=== PATIENT | male | born 1960 | race Caucasian/White ===

== ENCOUNTER 2017-04-09 14:09 | Emergency (ER) | payer OTHER ==
[~2017-04-09] VITALS: Ht 175.3 cm; Wt 72.6 kg
[~2017-04-09 14:09] MED LIST: ALEVE220 MG PO; ALLOPURINOL 30300 M2 PO; ANTABUSE250 M1 PO; ATIVAN0.5 MG PO; ATIVAN1 M1 PO; ATIVAN1 MG PO; BACTRIM DS TAB1 EACH PO; CELEXA 10 MG TA10 M1 PO; CELEXA 20 MG TA20 MG PO; CELEXA10 MG; CLONIDINE0.1 PO; COLCRYS0.6 MG PO; DESYREL150 MG PO; DESYREL50 MG PO; DOXYCYCLINE 10100 MG PO; HYDROCHLOROTH12.5 MG PO; HYDROCODON-ACE1 EAC8 PO; K-DUR10 MEQ PO; KEPPRA 500 MG500 M1 PO; LEVOTHYROXIN0.025 MG; LIBRIUM10 MG PO; MAG-OX 400 TAB400 M1 PO; MAG6464 MG PO; MICROZIDE12.5 MG; MOBIC15 MG; MULTI-VITAMIN1 EAC5 PO; NEURONTIN 300300 M1 PO; NOHOMEMEDICATIONS; NORCO 5-325 TA1 EACH PO; PRILOSEC 20 MG20 MG PO; PROTONIX40 MG PO; SEROQUEL 100 M100 MG PO; SEROQUEL 50 MG50 M2 PO; SEROQUEL200 MG PO; SLOW-MAG64 MG PO; THIAMINE HCL100 MG PO; TOPROL XL25 MG PO; TRAZODONE 150150 M1; TRAZODONE 150150 M1 PO; TRINATE TABLET1 TAB PO
[2017-04-09] MEDS ORDERED: PHENERGAN 25 MG25 M1 PO (15:13)
[2017-04-09] MEDS ORDERED: ZOFRAN ODT4 MG PO (15:13)
== END 2017-04-09 15:45 | disposition home or self-care (01) ==
LOC: ER 14:09
DX: S06.0X0A Concussion without loss of consciousness, initial encounter (principal); I10 Essential (primary) hypertension; F32.9 Major depressive disorder, single episode, unspecified; F10.99 Alcohol use, unspecified with unspecified alcohol-induced disorder; Y00.XXXA Assault by blunt object, initial encounter; Y93.89 Activity, other specified; Y92.89 Other specified places as the place of occurrence of the external cause; Y99.8 Other external cause status

== ENCOUNTER 2017-04-09 18:03 | Emergency (ER) | payer OTHER ==
[~2017-04-09] VITALS: Ht 175.3 cm; Wt 66.7 kg
[~2017-04-09 18:03] MED LIST changes: +PHENERGAN 25 MG25 M1 PO; +ZOFRAN ODT4 MG PO
[2017-04-09 18:51] LABS: ABSOLUTE NEUTROPHILS 3.9 thou/uL (1.4-8.2); BASOPHILS 0.4 % (0.0-2.0); EOSINOPHILS 4.8 % (0.0-3.0); HEMATOCRIT 32.5 % (42.0-52.0); HEMOGLOBIN 10.5 gm/dL (14.0-18.0); LYMPHOCYTES 35.6 % (24.0-44.0); MCH 25.9 pg (26.0-34.0); MCHC 32.2 g/dL (28.0-37.0); MCV 80.6 fL (80.0-100.0); MONOCYTES 6.3 % (1.0-8.0); PLATELET COUNT 332 thou/uL (150-400); POLYS 52.9 % (36.0-66.0); RBC 4.04 mil/uL (4.50-6.00); RDW 21.3 % (10.5-14.5); WBC 7.5 thou/uL (4.0-11.0)
[2017-04-09 18:52] LABS: MANUAL DIFF NO
[2017-04-09 18:59] LABS: CALCIUM 8.7 mg/dL (8.5-10.1); CREATININE 0.8 mg/dL (0.7-1.3)
== END 2017-04-09 20:13 | disposition home or self-care (01) ==
LOC: ER 18:03
PROVIDERS: Physician Assistant
DX: R53.1 Weakness (principal); E87.1 Hypo-osmolality and hyponatremia; E86.0 Dehydration; I10 Essential (primary) hypertension; F32.9 Major depressive disorder, single episode, unspecified; F41.9 Anxiety disorder, unspecified; F10.99 Alcohol use, unspecified with unspecified alcohol-induced disorder

== ENCOUNTER 2017-05-20 14:21 | Emergency (ER) | payer OTHER ==
[~2017-05-20] VITALS: Ht 175.3 cm; Wt 68.0 kg
[2017-05-20] MEDS ORDERED: LEVOTHYROXIN0.125 M1 PO (15:18)
[2017-05-20] MEDS ORDERED: ZOLOFT50 MG PO (15:19)
[2017-05-20] MEDS ORDERED: NORVASC5 MG PO (15:19)
[2017-05-20] MEDS ORDERED: PROTONIX40 M1 PO (15:19)
[2017-05-20] MEDS ORDERED: GABAPENTIN 100100 MG PO (15:19)
[2017-05-20] MEDS ORDERED: ATIVAN1 M1 PO (15:20)
== END 2017-05-20 15:20 | disposition home or self-care (01) ==
LOC: ER 14:21
DX: F10.10 Alcohol abuse, uncomplicated (principal); I10 Essential (primary) hypertension; F32.9 Major depressive disorder, single episode, unspecified; F41.9 Anxiety disorder, unspecified

== ENCOUNTER 2017-06-05 12:56 | Inpatient (IN) | payer OTHER ==
[~2017-06-05] VITALS: Ht 175.3 cm; Wt 65.3 kg
--- NOTE | ~2017-06-05 | EKG ---
[address] [address] ELECTROCARDIOGRAM REPORT Name: LEONORNICK Maria C Room #: 458-P [facility] IN M.R.#: [id number] Admission: 06/05/17 Attend Phys: David Hoffman DO Discharge: 06/07/17 Date of : 58 Report #: [id number] THIS REPORT FOR: //name// [facility] ED Test Date: 2017-06-05 Test Time: 13:11:17 Pat Name: NICK GALVEZ Department: Room: [facility] Gender: M Store Mgr: KF : 1960 Requested By: Darwin Correa Order Number: [id number] MD: Lele Song Measurements Intervals [place] Rate: 118 P: 78 MS: 127 QRS: -17 QRSD: 86 T: 73 QT: 347 QTc: 487 Interpretive Statements Sinus tachycardia Borderline left axis deviation Compared to ECG 06/28/2013 01:29:51 No significant changes Electronically Signed On 06-08-2017 22:02:17 CDT by Lele Song [email or web address] <ELECTRONICALLY SIGNED> By: Lele Song MD 06/08/17 2202 10 Lele Song MD /EPI
[~2017-06-05 12:56] MED LIST changes: +GABAPENTIN 100100 MG PO; +LEVOTHYROXIN0.125 M1 PO; +NORVASC5 MG PO; +PROTONIX40 M1 PO; +ZOLOFT50 MG PO
[2017-06-05 12:58] VITALS: BP 134/109; BP 82/46
[2017-06-05 14:03] LABS: ABSOLUTE NEUTROPHILS 9.5 thou/uL (1.4-8.2); BASOPHILS 0.8 % (0.0-2.0); EOSINOPHILS 0.9 % (0.0-3.0); HEMATOCRIT 36.5 % (42.0-52.0); HEMOGLOBIN 11.7 gm/dL (14.0-18.0); MCH 25.4 pg (26.0-34.0); MCHC 32.1 g/dL (28.0-37.0); MCV 79.3 fL (80.0-100.0); MONOCYTES 3.6 % (1.0-8.0); PLATELET COUNT 353 thou/uL (150-400); POLYS 76.7 % (36.0-66.0); RDW 20.1 % (10.5-14.5); WBC 12.4 thou/uL (4.0-11.0)
[2017-06-05 14:05] LABS: MANUAL DIFF NO
[2017-06-05 14:16] LABS: CALCIUM 9.3 mg/dL (8.5-10.1); CREATININE 1.3 mg/dL (0.7-1.3); POTASSIUM 3.9 mmol/L (3.5-5.1)
[2017-06-05 15:41] VITALS: BP 113/69
[2017-06-05 15:57] LABS: URINE BILIRUBIN NEGATIVE (Negative); URINE BLOOD NEGATIVE (Negative); URINE COLOR YELLOW; URINE GLUCOSE-RANDOM* NEGATIVE (Negative); URINE KETONES 1+ (Negative); URINE LEUKOCYTES-REFLEX NEGATIVE (Negative); URINE PROTEIN (DIPSTICK) NEGATIVE (Negative); URINE SPECIFIC GRAVITY 1.025 (1.003-1.035); URINE UROBILINOGEN 0.2 E.U./dl (0.2-1.0)
[2017-06-05 16:05] VITALS: BP 115/76
[2017-06-05 16:08] LABS: AMP/METHAMP Negative (Negative); BARBITURATES Negative (Negative); BENZODIAZEPINES Negative (Negative); COCAINE Negative (Negative); METHADONE Negative (Negative); OPIATES Negative (Negative); PCP Negative (Negative); THC Negative (Negative)
[2017-06-05 16:30] VITALS: BP 113/77
[2017-06-05 19:41] LABS: TSH 1.054 uIU/mL (0.358-3.740)
[2017-06-05 20:16] VITALS: BP 120/74
[2017-06-06 00:25] VITALS: BP 116/77
[2017-06-06 04:28] VITALS: BP 116/79
[2017-06-06 07:23] VITALS: BP 137/93
[2017-06-06 11:17] VITALS: BP 139/100
[2017-06-06 15:50] VITALS: BP 130/85
[2017-06-06 19:53] VITALS: BP 123/78
[2017-06-07 04:18] LABS: ALBUMIN 2.8 g/dL (3.4-5.0); ALKALINE PHOSPHATASE 44 U/L (46-116); DIRECT BILIRUBIN < 0.1 mg/dL (<0.1-0.3); SGOT 21 U/L (15-37); SGPT 16 U/L (30-65); TOTAL BILIRUBIN 0.3 mg/dL (<0.1-1.0); TOTAL PROTEIN 6.5 g/dL (6.4-8.2)
[2017-06-07 05:38] VITALS: BP 139/69
[2017-06-07 07:13] VITALS: BP 156/104
[2017-06-07] MEDS ORDERED: HYDROXYZINE PAM50 MG PO (09:29)
[2017-06-07] MEDS ORDERED: TRAZODONE HCL50 MG PO (09:30)
[2017-06-07 09:58] VITALS: BP 156/104
[2017-06-07 10:21] VITALS: BP 156/104
== END 2017-06-07 11:02 | disposition home or self-care (01) | DRG 897 ==
LOC: ER 12:56 → EROBS 14:47 → 4W 17:21
PROVIDERS: Emergency Medicine; Nurse Practitioner; Psychiatry & Neurology Psychiatry
DX: F10.229 Alcohol dependence with intoxication, unspecified (principal); F41.9 Anxiety disorder, unspecified; I10 Essential (primary) hypertension; I95.9 Hypotension, unspecified; Y90.0 Blood alcohol level of less than 20 mg/100 ml; F32.9 Major depressive disorder, single episode, unspecified; Z81.1 Family history of alcohol abuse and dependence; Z80.9 Family history of malignant neoplasm, unspecified; Z87.81 Personal history of (healed) traumatic fracture
CPT/HCPCS: 10045

== ENCOUNTER 2017-06-10 21:12 | Emergency (ER) | payer OTHER ==
[~2017-06-10] VITALS: Ht 175.3 cm; Wt 65.3 kg
[~2017-06-10 21:12] MED LIST changes: +HYDROXYZINE PAM50 MG PO; +TRAZODONE HCL50 MG PO
[2017-06-10 22:45] LABS: LYMPHOCYTES 38.8 % (24.0-44.0); MANUAL DIFF NO; MCHC 32.3 % (28.0-37.0); MCV 77.4 fL (80.0-100.0); MONOCYTES 7.6 % (1.0-8.0); PLATELET COUNT 347 thou/uL (150-400); POLYS 49.6 % (36.0-66.0); RBC 4.39 mil/uL (4.50-6.00); RDW 20.4 % (10.5-14.5); WBC 8.9 thou/uL (4.0-11.0)
[2017-06-10 22:45] LABS: CHLORIDE 104 mmol/L (98-107); POTASSIUM 3.9 mmol/L (3.5-5.1); SODIUM 145 mmol/L (136-145)
[2017-06-10 22:46] LABS: ANION GAP 16 mmol/L (7-16); BUN 12 mg/dL (7-18); CALCIUM 9.1 mg/dL (8.5-10.1); CO2 25 mmol/L (21-32); CREATININE 0.8 mg/dL (0.7-1.3); GLUCOSE 74 mg/dL (74-106)
[2017-06-10 22:46] LABS: ABSOLUTE NEUTROPHILS 4.4 thou/uL (1.4-8.2); BASOPHILS 0.4 % (0.0-2.0); EOSINOPHILS 3.6 % (0.0-3.0)
[2017-06-10 22:53] LABS: ACETAMINOPHEN < 2 ug/mL (10-30); ALBUMIN 3.8 g/dL (3.4-5.0); ALKALINE PHOSPHATASE 53 U/L (46-116); SGOT 53 U/L (15-37); SGPT 25 U/L (30-65); TOTAL BILIRUBIN 0.4 mg/dL (<0.1-1.0); TOTAL PROTEIN 7.8 g/dL (6.4-8.2)
== END 2017-06-11 00:08 | disposition other institution, planned readmission (95) ==
LOC: ER 21:12
PROVIDERS: Physician Assistant
DX: F10.10 Alcohol abuse, uncomplicated (principal); I10 Essential (primary) hypertension; F32.9 Major depressive disorder, single episode, unspecified; F41.9 Anxiety disorder, unspecified; K76.0 Fatty (change of) liver, not elsewhere classified; F17.210 Nicotine dependence, cigarettes, uncomplicated

== ENCOUNTER 2017-10-01 22:31 | Emergency (ER) | payer OTHER ==
[~2017-10-01] VITALS: Ht 175.3 cm; Wt 66.7 kg
[2017-10-01] MEDS ORDERED: NEURONTIN 300M300 M2 PO (22:51)
[2017-10-01] MEDS ORDERED: NORVASC10 MG PO (22:52)
[2017-10-01] MEDS ORDERED: ATIVAN1 MG PO (23:33)
== END 2017-10-01 23:55 ==
LOC: ER 22:31
DX: F10.10 Alcohol abuse, uncomplicated (principal); I10 Essential (primary) hypertension; F32.9 Major depressive disorder, single episode, unspecified; F41.9 Anxiety disorder, unspecified; M19.90 Unspecified osteoarthritis, unspecified site

== ENCOUNTER 2017-10-27 14:56 | Emergency (ER) | payer OTHER ==
[~2017-10-27] VITALS: Ht 175.3 cm; Wt 69.4 kg
[~2017-10-27 14:56] MED LIST changes: +NEURONTIN 300M300 M2 PO; +NORVASC10 MG PO
[2017-10-27 16:14] LABS: ABSOLUTE NEUTROPHILS 5.5 thou/uL (1.4-8.2); BASOPHILS 2.2 % (0.0-2.0); HEMATOCRIT 34.1 % (42.0-52.0); HEMOGLOBIN 11.2 gm/dL (14.0-18.0); LYMPHOCYTES 21.1 % (24.0-44.0); MCH 24.8 pg (26.0-34.0); MCHC 32.9 g/dL (28.0-37.0); MCV 75.5 fL (80.0-100.0); MONOCYTES 8.3 % (1.0-8.0); PLATELET COUNT 385 thou/uL (150-400); POLYS 66.4 % (36.0-66.0); RBC 4.52 mil/uL (4.50-6.00); WBC 8.3 thou/uL (4.0-11.0)
[2017-10-27 16:25] LABS: CALCIUM 8.6 mg/dL (8.5-10.1); CREATININE 0.7 mg/dL (0.7-1.3); POTASSIUM 3.7 mmol/L (3.5-5.1)
[2017-10-27 16:31] LABS: ALBUMIN 3.5 g/dL (3.4-5.0); TOTAL BILIRUBIN 0.2 mg/dL (<0.1-1.0); TOTAL PROTEIN 7.4 g/dL (6.4-8.2)
[2017-10-27] MEDS ORDERED: ATIVAN1 MG PO (18:40)
[2017-10-27] MEDS ORDERED: PHENERGAN 25 MG25 M1 PO (18:40)
[2017-10-27 19:08] VITALS: BP 120/74
== END 2017-10-27 19:10 ==
LOC: ER 14:56
PROVIDERS: Physician Assistant
DX: F10.129 Alcohol abuse with intoxication, unspecified (principal); T69.8XXA Other specified effects of reduced temperature, initial encounter; I10 Essential (primary) hypertension; F32.9 Major depressive disorder, single episode, unspecified; F41.9 Anxiety disorder, unspecified; M71.9 Bursopathy, unspecified; I73.00 Raynaud's syndrome without gangrene; Z87.891 Personal history of nicotine dependence; X31.XXXA Exposure to excessive natural cold, initial encounter; Y93.89 Activity, other specified; Y92.89 Other specified places as the place of occurrence of the external cause; Y99.8 Other external cause status; Y90.8 Blood alcohol level of 240 mg/100 ml or more

== ENCOUNTER → 2017-10-30 | Emergency (ER) | payer OTHER ==
[~2017-10-30] MED LIST changes: +AMBIEN 5 MG TABL5 M1 PO; +PANTOPRAZOLE SO40 M1 PO; +QUETIAPINE FUM100 MG PO; +SEROQUEL 100 M100 M1 PO
== END ==
LOC: ER 05:31
DX: Z53.21 Procedure and treatment not carried out due to patient leaving prior to being seen by health care provider (principal)

== ENCOUNTER 2017-12-01 22:06 | Emergency (ER) | payer OTHER ==
[~2017-12-01] VITALS: Ht 175.3 cm; Wt 69.4 kg
[~2017-12-01 22:06] MED LIST changes: -AMBIEN 5 MG TABL5 M1 PO; -PANTOPRAZOLE SO40 M1 PO; -QUETIAPINE FUM100 MG PO; -SEROQUEL 100 M100 M1 PO
[2017-12-01 23:53] LABS: ABSOLUTE NEUTROPHILS 8.1 thou/uL (1.4-8.2); BASOPHILS 1.3 % (0.0-2.0); EOSINOPHILS 0.1 % (0.0-3.0); HEMATOCRIT 39.6 % (42.0-52.0); HEMOGLOBIN 12.6 gm/dL (14.0-18.0); LYMPHOCYTES 15.5 % (24.0-44.0); MCHC 31.8 g/dL (28.0-37.0); MCV 78.6 fL (80.0-100.0); MONOCYTES 4.6 % (1.0-8.0); PLATELET COUNT 361 thou/uL (150-400); POLYS 78.5 % (36.0-66.0); RBC 5.03 mil/uL (4.50-6.00); RDW 19.1 % (10.5-14.5); WBC 10.3 thou/uL (4.0-11.0)
[2017-12-02] LABS: ANION GAP 26 mmol/L (7-16); BUN 18 mg/dL (7-18); CALCIUM 8.5 mg/dL (8.5-10.1); CHLORIDE 100 mmol/L (98-107); CO2 14 mmol/L (21-32); CREATININE 0.9 mg/dL (0.7-1.3); GLUCOSE 71 mg/dL (74-106); POTASSIUM 4.5 mmol/L (3.5-5.1); SODIUM 140 mmol/L (136-145)
[2017-12-02 00:05] LABS: ALBUMIN 3.6 g/dL (3.4-5.0); DIRECT BILIRUBIN < 0.1 mg/dL (<0.1-0.3); LIPASE 205 U/L (73-393); SGOT 36 U/L (15-37); SGPT 27 U/L (30-65); TOTAL BILIRUBIN 0.4 mg/dL (<0.1-1.0); TOTAL PROTEIN 7.4 g/dL (6.4-8.2)
[2017-12-02 01:35] VITALS: BP 123/82
== END 2017-12-02 01:36 | disposition home or self-care (01) ==
LOC: ER 22:06
PROVIDERS: Emergency Medicine
DX: F10.129 Alcohol abuse with intoxication, unspecified (principal); I10 Essential (primary) hypertension; F32.9 Major depressive disorder, single episode, unspecified; F41.9 Anxiety disorder, unspecified; Z87.891 Personal history of nicotine dependence

== ENCOUNTER 2017-12-08 22:41 | Inpatient (IN) | payer OTHER ==
[~2017-12-08] VITALS: Ht 175.3 cm; Wt 58.5 kg
--- NOTE | ~2017-12-08 | HC ---
[facility] [place] [address] CONSULTATION Name: NICK GALVEZ Room #: 364-P ADM IN M.R.#: [id number] Admission: 12/09/17 Attend Phys: Chinmay Garcia MD Discharge: Date of : 58 Report #: [id number] THIS REPORT FOR: //name// CC: Chinmay HAAS unknown DATE OF SERVICE: 12/10/2017 CHIEF COMPLAINT: Surgical wound to the chest wall. HISTORY OF PRESENT ILLNESS: This is a 57-year-old male patient who presents to the hospital for ongoing care of a wound to his chest wall and a previously dehisced surgical flap to the right ischial region. He had a rib fracture in his right chest wall and apparently developed ulceration that was nonhealing and he has had extensive debridement in the operating room today. He had a previous flap in September by at [facility]. I have been asked to see him with regard to wound care today. Additionally, he is noted to have hematuria and is being evaluated for this. He has been at [facility] recently. He has had a wound VAC on the area of the flap dehiscence. PAST MEDICAL HISTORY: Positive for history of spinal cord injury with paraplegia. He has a suprapubic catheter. He has had a history of renal and bladder stones. FAMILY HISTORY: Noncontributory. SOCIAL HISTORY: Negative for alcohol or tobacco use. ALLERGIES: SULFA, TRIMETHOPRIM, CIPRO. MEDICATIONS: Include Benadryl, Phenergan, meropenem, dantrolene, iron, Lovenox, ibuprofen, hydrocodone, Celexa, calcium, protein supplement, MiraLax, Protonix, nystatin powder, zinc, oxybutynin, folic acid. REVIEW OF SYSTEMS: CONSTITUTIONAL: Denies fever, chills or weight loss. NEUROLOGICAL: The patient is paraplegic. ENT: The patient denies earache, nasal drainage, sore throat. CARDIOVASCULAR: The patient denies chest pain or palpitations, diaphoresis. PULMONARY: The patient denies cough or shortness of breath. GASTROINTESTINAL: The patient denies nausea, vomiting, diarrhea or abdominal pain. ORTHOPEDIC: The patient is aware of the flap dehiscence as well as the chest wall wound. Other systems in a 14-point review of systems are negative. PHYSICAL EXAMINATION: [address] [address] CONSULTATION Name: NICK GALVEZ Room #: 364-P [facility] IN ..#: [id number] Admission: 12/09/17 Attend Phys: Chinmay Garcia MD Discharge: Date of : 58 Report #: [id number] VITAL SIGNS: At this time include pulse rate of 85, respiration of 18, blood pressure 109/59, temperature 97.7. GENERAL: This is a chronically ill-appearing male patient who appears to be in minimal distress. HEENT: Head is normocephalic. Nose and throat clear. NECK: Supple. LUNGS: Clear. ABDOMEN: Soft, distended. Suprapubic catheter in place. CHEST WALL: Demonstrates a surgical wound to the right chest wall that is healthy, clean and granulating. No significant tunneling or undermining is noted. No evidence of infection. EXTREMITIES: The right ischial region demonstrates a surgical flap to the ischial region. There is a proximal portion, which is dehisced; however, is clean and granulating. LABORATORY DATA: Includes serum sodium 139, potassium 4.1, chloride 104, CO2 28, BUN 43, creatinine 1.1, glucose 119. White blood cell count is 8.2; the hemoglobin 12.0; hematocrit of 37.4; platelet count is 272,000. CLINICAL IMPRESSION: 1. Surgical wound to the chest wall following debridement of chronic pressure ulceration. 2. Dehisced right ischial flap following flap closure of a stage IV pressure ulceration. 3. Paraplegia secondary to spinal cord injury. RECOMMENDATIONS: At this point in time, we will use moist gauze dressings for today. He will be returning likely to the [facility] tomorrow, where I think a wound VAC to both locations would be appropriate. If for some reason he states here long, we will initiate wound VAC while here in the hospital. All questions have been answered. I appreciate being asked to see him in consultation. <ELECTRONICALLY SIGNED> By: Chago Ríos MD 12/11/17 [id number] Chago Ríos MD /nt
--- NOTE | ~2017-12-08 | S ---
[facility] [place] [address] [place] [address] SURGICAL PATH RPT PROCEDURE Name: NICK GALVEZ Room #: 364-P ADM IN M.R.#: [id number] Admission: 12/09/17 Date of : 58 Discharge: Report #: [id number] Path Case #: [id number] PATHOLOGY REPORT COLLECTION DATE: 12/09/2017 RECEIVED DATE: 12/09/2017 SUBMITTING PHYS: Dr. Atif Chan OTHER PHYS: SPECIMEN(S) RECEIVED: A.Antrum rule out H pylori * * * * * * * * * * * * FINAL DIAGNOSIS: Gastric mucosa, antrum rule out H. pylori, endoscopic biopsy: - Mild reactive gastropathy. - Negative for intestinal metaplasia or atrophy. - Negative for Helicobacter pylori. COMMENT: A well-controlled Helicobacter pylori immunohistochemical stain performed on block A1-Negative. (IUV:pit; 12/10/2017) PATHOLOGIST: Cara Mosher M.D. REPORT ELECTRONICALLY SIGNED BY: Cara Mosher M.D. DATE/TIME: 12/10/2017 16:35 * * * * * * * * * * * * GROSS PATHOLOGY: Received in formalin labeled "Nick Galvez, antrum, rule out H. pylori," are 2 segments of stokes soft tissue measuring 0.7 x 0.3 x 0.2 cm in aggregate dimensions and ranging from 0.3 to 0.4 cm in maximum dimension. The specimen is submitted entirely in cassette A1. (TSD; 12/09/2017) CLINICAL HISTORY: Pre-OP DX: Coffee-ground emesis Post-OP DX: Duodenal ulcers, gastritis, esophagitis INITIAL CPT CODE(S): A; 08693, 54700 Professional services performed by [facility] at [address] [place] [address] [facility] [address] [place] [address] SURGICAL PATH RPT PROCEDURE Name: NICK GALVEZ Room #: 364-P ADM IN M.R.#: [id number] Admission: 12/09/17 Date of : 58 Discharge: Report #: [id number] Path Case #: [id number] Technical services performed by [facility] at [address] [place] [address], [facility] [address] [place] [address]. [place] [address] PHONE: [phone] DIRECTOR: Ronald Cabello M.D. * * * END OF REPORT * * *
[2017-12-08 22:46] VITALS: BP 129/86
[2017-12-08] MEDS ORDERED: AMBIEN 5 MG TABL5 M1 PO (23:56)
[2017-12-08] MEDS ORDERED: QUETIAPINE FUM100 MG PO (23:57)
[2017-12-09 01:00] LABS: ABSOLUTE NEUTROPHILS 2.3 thou/uL (1.4-8.2); BASOPHILS 1.3 % (0.0-2.0); HEMATOCRIT 29.1 % (42.0-52.0); HEMOGLOBIN 9.8 gm/dL (14.0-18.0); LYMPHOCYTES 45.7 % (24.0-44.0); MCH 25.7 pg (26.0-34.0); MCHC 33.7 g/dL (28.0-37.0); MCV 76.4 fL (80.0-100.0); MONOCYTES 8.9 % (1.0-8.0); PLATELET COUNT 167 thou/uL (150-400); POLYS 41.1 % (36.0-66.0); RBC 3.81 mil/uL (4.50-6.00); RDW 18.9 % (10.5-14.5); WBC 5.6 thou/uL (4.0-11.0)
[2017-12-09 01:06] LABS: CALCIUM 8.3 mg/dL (8.5-10.1); CREATININE 0.6 mg/dL (0.7-1.3); POTASSIUM 3.2 mmol/L (3.5-5.1)
[2017-12-09 03:08] VITALS: BP 121/69
[2017-12-09 03:10] VITALS: BP 117/89
[2017-12-09 03:17] LABS: HEMATOCRIT 30.3 % (42.0-52.0)
[2017-12-09 04:48] LABS: MAGNESIUM 1.6 mg/dL (1.8-2.4); PHOSPHORUS 4.1 mg/dL (2.5-4.9)
[2017-12-09 05:53] LABS: ALBUMIN 3.3 g/dL (3.4-5.0); DIRECT BILIRUBIN < 0.1 mg/dL (<0.1-0.3); SGOT 138 U/L (15-37); SGPT 83 U/L (30-65); TOTAL BILIRUBIN 0.1 mg/dL (<0.1-1.0); TOTAL PROTEIN 6.7 g/dL (6.4-8.2)
[2017-12-09 08:30] VITALS: BP 104/65
[2017-12-09 09:01] LABS: HEMATOCRIT 26.3 % (42.0-52.0); HEMOGLOBIN 8.7 gm/dL (14.0-18.0)
[2017-12-09 12:00] VITALS: BP 123/75
[2017-12-09 14:56] LABS: HEMATOCRIT 28.7 % (42.0-52.0); HEMOGLOBIN 9.5 gm/dL (14.0-18.0)
[2017-12-09 15:08] LABS: MAGNESIUM 1.8 mg/dL (1.8-2.4); POTASSIUM 3.3 mmol/L (3.5-5.1)
[2017-12-09 16:00] VITALS: BP 118/71
[2017-12-09 20:00] VITALS: BP 122/83
[2017-12-09 21:15] LABS: HEMATOCRIT 25.7 % (42.0-52.0); HEMOGLOBIN 8.5 gm/dL (14.0-18.0)
[2017-12-10 01:10] LABS: HAV IgM AB (ANTI-HAV IgM) Negative (Negative); HEPATITIS B SURFACE AG Negative (Negative); HEPATITIS C VIRUS AB <0.1 (0.0-0.9)
[2017-12-10 04:00] VITALS: BP 126/83
[2017-12-10 06:34] LABS: HEMATOCRIT 24.1 % (42.0-52.0); MCH 25.3 pg (26.0-34.0); MCHC 33.1 g/dL (28.0-37.0); MCV 76.6 fL (80.0-100.0); RBC 3.15 mil/uL (4.50-6.00); RDW 18.8 % (10.5-14.5); WBC 4.3 thou/uL (4.0-11.0)
[2017-12-10 07:01] LABS: ALBUMIN 2.7 g/dL (3.4-5.0); CALCIUM 8.3 mg/dL (8.5-10.1); CREATININE 0.7 mg/dL (0.7-1.3); DIRECT BILIRUBIN 0.2 mg/dL (<0.1-0.3); MAGNESIUM 1.7 mg/dL (1.8-2.4); TOTAL BILIRUBIN 0.5 mg/dL (<0.1-1.0); TOTAL PROTEIN 5.5 g/dL (6.4-8.2)
[2017-12-10 07:57] VITALS: BP 118/65
[2017-12-10 16:03] VITALS: BP 114/79
[2017-12-10 19:01] VITALS: BP 139/78
[2017-12-11 04:45] VITALS: BP 124/75
[2017-12-11 05:25] LABS: ABSOLUTE NEUTROPHILS 2.4 thou/uL (1.4-8.2); BASOPHILS 0.6 % (0.0-2.0); EOSINOPHILS 4.8 % (0.0-3.0); HEMATOCRIT 26.1 % (42.0-52.0); HEMOGLOBIN 8.4 gm/dL (14.0-18.0); LYMPHOCYTES 34.3 % (24.0-44.0); MCH 25.3 pg (26.0-34.0); MCHC 32.2 g/dL (28.0-37.0); MCV 78.6 fL (80.0-100.0); MONOCYTES 10.8 % (1.0-8.0); PLATELET COUNT 140 thou/uL (150-400); POLYS 49.5 % (36.0-66.0); RBC 3.32 mil/uL (4.50-6.00); RDW 19.7 % (10.5-14.5); WBC 4.9 thou/uL (4.0-11.0)
[2017-12-11 06:03] LABS: ALBUMIN 3.1 g/dL (3.4-5.0); DIRECT BILIRUBIN < 0.1 mg/dL (<0.1-0.3); SGOT 53 U/L (15-37); SGPT 48 U/L (30-65); TOTAL BILIRUBIN 0.3 mg/dL (<0.1-1.0); TOTAL PROTEIN 6.4 g/dL (6.4-8.2)
[2017-12-11 06:04] LABS: % SATURATION 6 % (20-39); IRON 20 ug/dL (65-175); TIBC 322 ug/dL (250-450)
[2017-12-11 07:56] LABS: MAGNESIUM 1.5 mg/dL (1.8-2.4)
[2017-12-11 08:50] VITALS: BP 124/75
[2017-12-11] MEDS ORDERED: SEROQUEL 100 M100 M1 PO (08:51)
[2017-12-11] MEDS ORDERED: PANTOPRAZOLE SO40 M1 PO (08:51)
[2017-12-11 08:54] VITALS: BP 124/75
== END 2017-12-11 09:30 | disposition home health service (06) | DRG 378 ==
LOC: ER 22:41 → EROBS 12-09 01:56 → 3W 12-09 01:56
PROVIDERS: Emergency Medicine; Hospitalist; Internal Medicine Gastroenterology; Nurse Practitioner; Nurse Practitioner Acute Care
PROC: 0DB68ZX Excision of Stomach, Via Natural or Artificial Opening Endoscopic, Diagnostic (ICD-10-PCS; principal; 2017-12-09)
DX: K29.71 Gastritis, unspecified, with bleeding (principal); D62 Acute posthemorrhagic anemia; E46 Unspecified protein-calorie malnutrition; Z68.1 Body mass index [BMI] 19.9 or less, adult; K26.4 Chronic or unspecified duodenal ulcer with hemorrhage; K44.9 Diaphragmatic hernia without obstruction or gangrene; K20.9 Esophagitis, unspecified; F32.9 Major depressive disorder, single episode, unspecified; F41.9 Anxiety disorder, unspecified; M19.90 Unspecified osteoarthritis, unspecified site; D63.8 Anemia in other chronic diseases classified elsewhere; E87.6 Hypokalemia; G89.29 Other chronic pain; M34.9 Systemic sclerosis, unspecified; E83.42 Hypomagnesemia; Z79.1 Long term (current) use of non-steroidal anti-inflammatories (NSAID); Z87.891 Personal history of nicotine dependence; Z87.442 Personal history of urinary calculi; Z88.1 Allergy status to other antibiotic agents; Z88.2 Allergy status to sulfonamides; Z88.8 Allergy status to other drugs, medicaments and biological substances; Z79.899 Other long term (current) drug therapy
CPT/HCPCS: 10879; 62110; 62900; 70005

== ENCOUNTER 2017-12-18 05:36 | Emergency (ER) | payer OTHER ==
[~2017-12-18] VITALS: Ht 172.7 cm; Wt 68.0 kg
[~2017-12-18 05:36] MED LIST changes: +AMBIEN 5 MG TABL5 M1 PO; +PANTOPRAZOLE SO40 M1 PO; +QUETIAPINE FUM100 MG PO; +SEROQUEL 100 M100 M1 PO
[2017-12-18 05:37] VITALS: BP 148/92
== END 2017-12-18 06:02 | disposition home or self-care (01) ==
LOC: ER 05:36
DX: T69.9XXA Effect of reduced temperature, unspecified, initial encounter (principal); I73.00 Raynaud's syndrome without gangrene; F10.20 Alcohol dependence, uncomplicated; Y90.9 Presence of alcohol in blood, level not specified; Z59.0 Homelessness; I10 Essential (primary) hypertension; Z87.891 Personal history of nicotine dependence

== ENCOUNTER 2020-01-31 12:58 | Emergency (ER) | payer OTHER ==
[~2020-01-31] VITALS: Ht 175.3 cm; Wt 68.0 kg
[2020-01-31] MEDS ORDERED: LOPERAMIDE2 MG PO (13:23)
[2020-01-31] MEDS ORDERED: LYRICA200 MG PO (13:24)
[2020-01-31] MEDS ORDERED: LEVO-T50 MCG PO (13:25)
[2020-01-31] MEDS ORDERED: SLOW FE142 MG PO (13:25)
[2020-01-31] MEDS ORDERED: KEPPRA XR500 MG PO (13:26)
[2020-01-31] MEDS ORDERED: TAMSULOSIN HCL0.4 MG PO (13:27)
[2020-01-31] MEDS ORDERED: ZENPEP DR 10,01 EACH PO (13:27)
[2020-01-31] MEDS ORDERED: MAG-OXIDE400 MG PO (13:27)
[2020-01-31] MEDS ORDERED: DRIZALMA SPRINK30 MG PO (13:28)
[2020-01-31 13:34] VITALS: BP 104/74
[2020-01-31] MEDS ORDERED: PREDNISONE 20 M20 MG PO (13:57)
== END 2020-01-31 13:55 | disposition home or self-care (01) ==
LOC: ER 12:58
DX: L53.9 Erythematous condition, unspecified (principal); L08.9 Local infection of the skin and subcutaneous tissue, unspecified; I10 Essential (primary) hypertension; Z87.891 Personal history of nicotine dependence